=== PATIENT | male | born 1995 | race Caucasian/White ===

== ENCOUNTER 2021-06-13 16:03 | Emergency (ER) | payer SELFPAY ==
[~2021-06-13] VITALS: Ht 177.8 cm; Wt 82.0 kg
[2021-06-13 19:15] LABS: HEMATOCRIT 46.3 % (42.0-52.0); HEMOGLOBIN 16.4 g/dl (13.5-17.5); MEAN CORPUSCULAR HEMOGLOBIN 30.3 pg (27.0-33.0); MEAN CORPUSCULAR HGB CONC 35.4 g/dl (32.0-36.5); MEAN CORPUSCULAR VOLUME 85.4 fl (80.0-96.0); PLATELET COUNT, AUTOMATED 348 10^3/uL (150-450); RED BLOOD COUNT 5.42 10^6/uL (4.30-6.10); WHITE BLOOD COUNT 22.9 10^3/uL (4.0-10.0)
[2021-06-13 19:20] LABS: AMPHETAMINES LEVEL URINE NEGATIVE (NEGATIVE); BARBITURATES URINE NEGATIVE (NEGATIVE); BENZODIAZEPINES URINE NEGATIVE (NEGATIVE); CANNABINOIDS URINE POSITIVE (NEGATIVE); COCAINE METABOLITE URINE NEGATIVE (NEGATIVE); METHADONE URINE NEGATIVE (NEGATIVE); OPIATES URINE NEGATIVE (NEGATIVE); PHENCYCLIDINE URINE NEGATIVE (NEGATIVE)
[2021-06-13 19:43] LABS: ACETAMINOPHEN LEVEL < 2.0 UG/ML (10.0-30.0); ALBUMIN 4.5 GM/DL (3.2-5.2); ALT/SGPT 27 U/L (12-78); BILIRUBIN,DIRECT 0.3 MG/DL (0.0-0.2); BILIRUBIN,TOTAL 0.8 MG/DL (0.2-1.0); BLOOD UREA NITROGEN 7 MG/DL (7-18); CALCIUM LEVEL 9.3 MG/DL (8.5-10.1); CARBON DIOXIDE LEVEL 26 MEQ/L (21-32); CHLORIDE LEVEL 104 MEQ/L (98-107); CREATININE FOR GFR 0.93 MG/DL (0.70-1.30); ETHYL ALCOHOL (ETHANOL) < 0.003 % (0.000-0.010); GLOMERULAR FILTRATION RATE > 60.0 (>60); GLUCOSE, FASTING 168 MG/DL (70-100); POTASSIUM SERUM 3.8 MEQ/L (3.5-5.1); SALICYLATE LEVEL 5.2 MG/DL (5.0-30.0); SODIUM LEVEL 138 MEQ/L (136-145); TOTAL PROTEIN 7.8 GM/DL (6.4-8.2)
[2021-06-13] MEDS ORDERED: LORazepam 0.5 MG TAB PO STA (23:31)
[2021-06-13] MEDS ORDERED: VITMTA PO (23:40)
[2021-06-13] MEDS ORDERED: C 50TAB PO (23:40)
[2021-06-13] MEDS ORDERED: HOME MED LIST COMPLETE! XX SCH (23:45)
[2021-06-14 20:22] VITALS: BP 146/100
== END 2021-06-14 20:46 ==
LOC: M ED 16:03
DX: F29 Unspecified psychosis not due to a substance or known physiological condition (principal); F32.A Depression, unspecified; F41.9 Anxiety disorder, unspecified; I49.8 Other specified cardiac arrhythmias; F12.10 Cannabis abuse, uncomplicated

== ENCOUNTER 2021-07-15 22:37 | Inpatient (IN) | payer MEDICAID, OTHER, SELFPAY ==
[~2021-07-15] VITALS: Ht 177.8 cm; Wt 90.9 kg
[~2021-07-15 22:37] MED LIST: C 50TAB PO; VITMTA PO
[2021-07-15] MEDS ORDERED: VENL37.598 PO (22:49)
[2021-07-15] MEDS ORDERED: HYDR50TA70 PO (22:49)
[2021-07-15] MEDS ORDERED: QUET50TA4 PO (22:49)
[2021-07-16 00:02] LABS: ACETAMINOPHEN LEVEL < 2.0 UG/ML (10.0-30.0); ALBUMIN 4.4 GM/DL (3.2-5.2); ALT/SGPT 40 U/L (12-78); AMPHETAMINES LEVEL URINE NEGATIVE (NEGATIVE); BARBITURATES URINE NEGATIVE (NEGATIVE); BENZODIAZEPINES URINE POSITIVE (NEGATIVE); BILIRUBIN,DIRECT 0.3 MG/DL (0.0-0.2); BLOOD UREA NITROGEN 12 MG/DL (7-18); CALCIUM LEVEL 9.8 MG/DL (8.5-10.1); CANNABINOIDS URINE POSITIVE (NEGATIVE); CARBON DIOXIDE LEVEL 27 MEQ/L (21-32); CHLORIDE LEVEL 104 MEQ/L (98-107); COCAINE METABOLITE URINE NEGATIVE (NEGATIVE); CREATININE FOR GFR 0.87 MG/DL (0.70-1.30); ETHYL ALCOHOL (ETHANOL) < 0.003 % (0.000-0.010); GLOMERULAR FILTRATION RATE > 60.0 (>60); GLUCOSE, FASTING 82 MG/DL (70-100); METHADONE URINE NEGATIVE (NEGATIVE); OPIATES URINE NEGATIVE (NEGATIVE); PHENCYCLIDINE URINE NEGATIVE (NEGATIVE); POTASSIUM SERUM 3.5 MEQ/L (3.5-5.1); SALICYLATE LEVEL 5.3 MG/DL (5.0-30.0); SODIUM LEVEL 140 MEQ/L (136-145); TOTAL PROTEIN 7.8 GM/DL (6.4-8.2)
[2021-07-16 00:12] LABS: HEMATOCRIT 47.3 % (42.0-52.0); HEMOGLOBIN 16.9 g/dl (13.5-17.5); MEAN CORPUSCULAR HEMOGLOBIN 30.3 pg (27.0-33.0); MEAN CORPUSCULAR HGB CONC 35.7 g/dl (32.0-36.5); MEAN CORPUSCULAR VOLUME 84.8 fl (80.0-96.0); PLATELET COUNT, AUTOMATED 403 10^3/uL (150-450); RED BLOOD COUNT 5.58 10^6/uL (4.30-6.10); WHITE BLOOD COUNT 23.9 10^3/uL (4.0-10.0)
[2021-07-16] MEDS ORDERED: **hydrALAZINE** 10 MG TAB PO ONE (00:50)
[2021-07-16 01:18] VITALS: BP 160/100
[2021-07-16 01:37] LABS: AMORPHOUS SEDIMENT SMALL (NEGATIVE); APPEARANCE, URINE CLOUDY (CLEAR); BACTERIA, URINE AUTO NEGATIVE (NEGATIVE); BILIRUBIN, URINE AUTO NEGATIVE (NEGATIVE); BLOOD, URINE BLOOD NEGATIVE (NEGATIVE); CALCIUM OXALATE CRYSTALS MODERATE; COLOR, URINE AMBER (YELLOW); GLUCOSE, URINE (UA) AUTO NEGATIVE (NEGATIVE); KETONE, URINE AUTO 1+ mg/dL (NEGATIVE); LEUKOCYTE ESTERASE, URINE AUTO NEGATIVE (NEGATIVE); MUCUS, URINE LARGE (NEGATIVE); NITRITE, URINE AUTO NEGATIVE (NEGATIVE); PROTEIN, URINE AUTO 1+ mg/dL (NEGATIVE); RBC, URINE AUTO 4 /HPF (0-3); SPECIFIC GRAVITY URINE AUTO 1.026 (1.002-1.035); SQUAMOUS EPITHELIAL CELL UR AU 0 /HPF (0-6); WBC, URINE AUTO 1 /HPF (0-3)
[2021-07-16 01:45] LABS: RSV AMPLIFICATION NEGATIVE (NEGATIVE)
[2021-07-16] MEDS ORDERED: FOSFOMYCIN TROMETHAMINE 3 GM POWDER PACKET (MONUROL) PO ONE (02:45)
[2021-07-16] MEDS ORDERED: HOME MED LIST COMPLETE! XX SCH (03:30)
[2021-07-16] MEDS ORDERED: hydrOXYzine 25 MG TAB PO PRN (07:20)
[2021-07-16] MEDS: VENLAFAXINE **XR** 37.5 MG CAPSULE PO SCH (08:38)
[2021-07-16 08:57] LABS: HEMATOCRIT 47.9 % (42.0-52.0); MEAN CORPUSCULAR HEMOGLOBIN 30.2 pg (27.0-33.0); MEAN CORPUSCULAR HGB CONC 35.5 g/dl (32.0-36.5); MEAN CORPUSCULAR VOLUME 85.2 fl (80.0-96.0); PLATELET COUNT, AUTOMATED 354 10^3/uL (150-450); RED BLOOD COUNT 5.62 10^6/uL (4.30-6.10); WHITE BLOOD COUNT 17.9 10^3/uL (4.0-10.0)
[2021-07-16 09:45] LABS: ATYPICAL LYMPH 9 % (0-5); LYMPHOCYTES 13 % (16-44); MONOCYTES 7 % (0-5); NEUTROPHILS 71 % (28-66)
[2021-07-16 09:46] LABS: PLATELET ESTIMATE NORMAL (NORMAL)
[2021-07-16] MEDS ORDERED: NICOTINE 21MG/24HR 1 EA TRANSDERMAL TD ONE (17:35)
[2021-07-16] MEDS ORDERED: QUEtiapine FUMARATE 50MG TAB PO SCH (21:00)
[2021-07-17] MEDS: VENLAFAXINE **XR** 37.5 MG CAPSULE PO SCH (08:32)
[2021-07-17] MEDS: NICOTINE 21MG/24HR 1 EA TRANSDERMAL TD SCH (09:00)
[2021-07-17] MEDS ORDERED: MAALOX 30 ML SUSP *UDC PO PRN (13:20)
[2021-07-17] MEDS ORDERED: ACETAMINOPHEN TAB 650MG DOSE (2X325MG) PO PRN (13:20)
[2021-07-17] MEDS ORDERED: MOM 30ML SUSPENSION UDC PO PRN (13:20)
[2021-07-17 14:49] VITALS: BP 145/83
[2021-07-17] MEDS ORDERED: LORazepam 1 MG TAB PO PRN (15:20)
[2021-07-17] MEDS ORDERED: diphenhydrAMINE 25MG CAP PO PRN (15:20)
[2021-07-17] MEDS: QUEtiapine FUMARATE 50MG TAB PO SCH (21:00)
[2021-07-18 06:38] VITALS: BP 135/88
[2021-07-18] MEDS: VENLAFAXINE **XR** 37.5 MG CAPSULE PO SCH (09:57)
[2021-07-18] MEDS: NICOTINE 21MG/24HR 1 EA TRANSDERMAL TD SCH (09:57)
[2021-07-18 17:53] VITALS: BP 138/82
[2021-07-18] MEDS: QUEtiapine FUMARATE 50MG TAB PO SCH (20:58)
[2021-07-19 07:38] LABS: CHOLESTEROL RISK RATIO 4.843 (<5)
[2021-07-19] MEDS: VENLAFAXINE **XR** 37.5 MG CAPSULE PO SCH (08:15)
[2021-07-19] MEDS: hydrOXYzine 50 MG TAB PO PRN ×2 (08:15→15:20)
[2021-07-19] MEDS: NICOTINE 21MG/24HR 1 EA TRANSDERMAL TD SCH (08:15)
[2021-07-19] MEDS: OMEGA-3 1000MG CAPSULE PO SCH ×2 (09:00→20:41)
[2021-07-19] MEDS ORDERED: NICOTINE 21MG/24HR 1 EA TRANSDERMAL TD SCH (09:00)
[2021-07-19 18:50] VITALS: BP 140/86
[2021-07-19] MEDS: QUEtiapine FUMARATE 50MG TAB PO SCH (20:40)
[2021-07-19] MEDS: traZODone 50 MG TAB PO PRN (20:40)
[2021-07-20 06:23] VITALS: BP 136/83
[2021-07-20] MEDS: NICOTINE 21MG/24HR 1 EA TRANSDERMAL TD SCH (08:16)
[2021-07-20] MEDS: hydrOXYzine 50 MG TAB PO PRN (08:16)
[2021-07-20] MEDS: OMEGA-3 1000MG CAPSULE PO SCH ×2 (08:16→20:26)
[2021-07-20] MEDS: VENLAFAXINE **XR** 37.5 MG CAPSULE PO SCH (08:16)
[2021-07-20 18:09] VITALS: BP 143/80
[2021-07-20] MEDS: QUEtiapine FUMARATE 50MG TAB PO SCH (20:26)
[2021-07-20] MEDS: traZODone 50 MG TAB PO PRN (20:26)
[2021-07-21 06:28] VITALS: BP 121/77
[2021-07-21] MEDS: VENLAFAXINE **XR** 37.5 MG CAPSULE PO SCH (08:01)
[2021-07-21] MEDS: OMEGA-3 1000MG CAPSULE PO SCH (08:01)
[2021-07-21] MEDS: NICOTINE 21MG/24HR 1 EA TRANSDERMAL TD SCH (08:02)
[2021-07-21] MEDS ORDERED: ABIL1TAB11 PO (08:32)
[2021-07-21] MEDS ORDERED: VENL37.598 PO (08:32)
[2021-07-21] MEDS ORDERED: TRAZ-252 PO (08:32)
[2021-07-21] MEDS ORDERED: FISH1CAP26 PO (08:32)
[2021-07-21] MEDS ORDERED: NICO21PAT TD (08:32)
[2021-07-21] MEDS ORDERED: ABIL400I IM (08:32)
[2021-07-21] MEDS ORDERED: QUET50TA4 PO (08:32)
[2021-07-21] MEDS ORDERED: LIDO5DIS41 TOP (08:35)
[2021-07-21] MEDS ORDERED: LIDOCAINE 5% (LIDODERM) PATCH TD SCH (09:00)
[2021-07-21] MEDS ORDERED: ARIPiprazole MONOHYDRATE 400 MG INJ (ABILIFY) IM ONE (10:00)
[2021-07-21] MEDS ORDERED: **NOTE PATIENT COMMENT** MISC XX SCH (21:00)
== END 2021-07-21 15:18 | disposition home or self-care (01) | DRG 750 ==
LOC: M ED 22:37 → M ED INP 07-17 13:17 → M PSY 07-17 14:47
PROVIDERS: ADMIT Student in an Organized Health Care Education/Training Program; ATTEND Student in an Organized Health Care Education/Training Program
DX: F20.9 Schizophrenia, unspecified (principal); F12.90 Cannabis use, unspecified, uncomplicated; F17.200 Nicotine dependence, unspecified, uncomplicated; Z20.822 Contact with and (suspected) exposure to COVID-19; Z91.19 Patient's noncompliance with other medical treatment and regimen; Z79.899 Other long term (current) drug therapy; I10 Essential (primary) hypertension; D72.829 Elevated white blood cell count, unspecified

== ENCOUNTER 2022-12-15 14:15 | Inpatient (IN) | payer MEDICAID, OTHER ==
[~2022-12-15] VITALS: Ht 180.3 cm; Wt 89.8 kg
[~2022-12-15 14:15] MED LIST changes: +ABIL1TAB11 PO; +ABIL400I IM; +FISH1CAP26 PO; +HYDR50TA70 PO; +LIDO5DIS41 TOP; +NICO21PAT TD; +QUET50TA4 PO; +TRAZ-252 PO; +VENL37.598 PO
[2022-12-15] MEDS ORDERED: ACETAMINOPHEN TAB 650MG DOSE (2X325MG) PO PRN (19:30)
[2022-12-15] MEDS ORDERED: traZODone 50 MG TAB PO PRN (19:30)
[2022-12-15] MEDS ORDERED: IBUPROFEN 400MG TAB PO PRN (19:30)
[2022-12-15] MEDS ORDERED: OLANZapine ORAL DISINTEGRATING TAB 5MG PO PRN (19:30)
[2022-12-15] MEDS ORDERED: diphenhydrAMINE 25MG CAP PO PRN (19:30)
[2022-12-15] MEDS ORDERED: MAALOX 30 ML SUSP *UDC PO PRN (19:30)
[2022-12-15] MEDS ORDERED: MOM 30ML SUSPENSION UDC PO PRN (19:30)
[2022-12-15] MEDS ORDERED: HOME MED LIST COMPLETE! XX SCH (19:35)
[2022-12-15] MEDS ORDERED: ARIPiprazole 10 MG TAB PO SCH (21:00)
[2022-12-15 21:14] VITALS: BP 160/93; TEMP 97.9; O2SAT 97
[2022-12-16 06:34] VITALS: BP 128/88; TEMP 97.4; O2SAT 98
[2022-12-16] MEDS ORDERED: traZODone 100 MG TAB PO PRN (10:15)
[2022-12-16] MEDS ORDERED: hydrOXYzine 50 MG TAB PO PRN (10:40)
[2022-12-16] MEDS: NICOTINE 21MG/24HR 1 EA TRANSDERMAL TD PRN (11:21)
[2022-12-16 16:14] VITALS: BP 148/100; TEMP 97.9; O2SAT 98
[2022-12-16] MEDS: PALIPERIDONE 3MG ER TAB (INVEGA) PO SCH (21:52)
[2022-12-17 06:28] VITALS: BP 136/92; TEMP 97.3; O2SAT 98
[2022-12-17] MEDS: NICOTINE 21MG/24HR 1 EA TRANSDERMAL TD PRN (07:38)
[2022-12-17 18:00] VITALS: BP 147/88; TEMP 96.4; O2SAT 100
[2022-12-17] MEDS: PALIPERIDONE 3MG ER TAB (INVEGA) PO SCH (20:55)
[2022-12-18 06:19] VITALS: BP 128/86; TEMP 97; O2SAT 99
[2022-12-18] MEDS ORDERED: TRAZ-257 PO ×2 (08:46→08:52)
[2022-12-18] MEDS ORDERED: PALI1TAB2 PO ×2 (08:46→08:52)
[2022-12-18] MEDS: NICOTINE 21MG/24HR 1 EA TRANSDERMAL TD PRN (08:49)
== END 2022-12-18 12:05 | disposition home or self-care (01) | DRG 754 ==
LOC: M ED 14:15 → M ED INP 19:28 → M PSY 20:36
PROVIDERS: ADMIT Psychiatry & Neurology Psychiatry; ATTEND Student in an Organized Health Care Education/Training Program
DX: F32.A Depression, unspecified (principal); R45.850 Homicidal ideations; R45.851 Suicidal ideations; F20.9 Schizophrenia, unspecified; F25.9 Schizoaffective disorder, unspecified; F17.200 Nicotine dependence, unspecified, uncomplicated; F12.90 Cannabis use, unspecified, uncomplicated